=== PATIENT | female | born 2000 | race Caucasian/White ===

== ENCOUNTER 2021-07-22 16:37 | Outpatient (REF) | payer OTHER, SELFPAY | END 2021-07-22 16:38 | disposition home or self-care (01) | LOC: HO.LNP 16:37 | PROVIDERS: Visit Provider Physician Assistant Medical | DX: Z20.822 Contact with and (suspected) exposure to COVID-19 (principal); J06.9 Acute upper respiratory infection, unspecified | CPT/HCPCS: U0003; U0005 ==

== ENCOUNTER 2022-01-16 01:54 | Emergency (ER) | payer OTHER, SELFPAY ==
[2022-01-16 02:31] VITALS: BP 109/61; PULSE 98; RESP 16; TEMP 36.3; O2SAT 95; BMI 23.1
[2022-01-16] MEDS: Lidocaine HCl 2 % 20 ML VIAL INFILTRATI (04:13)
--- NOTE | 2022-01-16 04:38 | ED.WOUNDLAC ---
HPI - Wound/Laceration General Chief Complaint: Extremity Injury, Lower Stated Complaint: lac on left thumb Time Seen by Provider: 01/16/22 03:52 Source: patient and other Mode of arrival: ambulatory History of Present Illness HPI narrative: 21-year-old female without significant past medical history and up-to-date on her tetanus presents with laceration to the left thumb. Related Data Home Medications Medication Instructions Recorded Confirmed No Known Home Meds 07/22/21 07/22/21 Allergies Allergy/AdvReac Type Severity Reaction Status Date / Time No Known Allergies Allergy Verified 07/22/21 10:34 Review of Systems Review of Systems: Pertinent positives and negatives as stated in HPI 10 point review of systems is otherwise negative. [facility] Past Medical History Source: nursing notes reviewed Social History Social History Patient Tobacco Use Status: Never used Tobacco Advance Directives: No Physical Exam Vital Signs: Vital Signs: Last Vital Signs Temp 97.4 F 01/16/22 02:31 Pulse 98 01/16/22 02:31 Resp 16 01/16/22 02:31 BP 109/61 01/16/22 02:31 Pulse Ox 95 01/16/22 02:31 BMI result Body Mass Index 23.1 VITAL SIGNS: Reviewed. GENERAL: Well developed, well nourished, in no acute distress. HEAD: Normocephalic/atraumatic EYES: PERRLA, EOMI EARS: Ext canals without abnormality OROPHARYNX: no oral lesions noted, posterior pharynx clear LUNGS: Normal breath sounds. SpO2<95> CARDIOVASCULAR: Regular rate and rhythm without noted murmurs ABDOMEN: Soft, non-tender, non-distended with bowel sounds. EXTREMITIES: No cyanosis, clubbing or edema; LEFT THUMB: 2.5 cm linear laceration that is hemostatic to the palmar aspect of the left thumb otherwise neurovascularly intact. NEUROLOGIC: Alert and oriented x 4. Course Course Course Narrative: 21-year-old female with a left thumb laceration that was repaired with 5 sutures, patient tolerated procedure well, no Tdap indicated at this time and otherwise discharged home in stable condition with instructions to follow-up in 7 days for suture removal in use Tylenol and ibuprofen for pain. Procedures Laceration Laceration 1: Site: hand Side (If applicable): left Size (cm): 2.5 Description: linear Depth: simple, single layer Local Anesthetic: lidocaine 2% Amount of anesthesia used (mL): 10 Pre-repair: wound explored, irrigated extensively and deep structures intact Skin layer closed with: nylon Size (cm): 4-0 Number of sutures: 5 Technique: simple, interrupted Discharge Plan Discharge Clinical Impression: Laceration of left thumb Patient Disposition: Home, Self-Care Instructions: Laceration (ED), Care For Your Stitches (ED) Additional Instructions: 1. Recommend [id number] Tylenol/ibuprofen as needed for pain control. Remember a keep hand elevated when possible. 2. After 24 hours you may cleanse the area gently with soap and water, blot dry, apply antibiotic ointment and use gauze bandage. 3. Please return to the emergency room or your primary care provider for removal of the sutures (5) in 7 days. Return to the ER for worsening symptoms. Prescriptions: No Action No Known Home Meds 0RF
== END 2022-01-16 05:00 | disposition home or self-care (01) ==
PROVIDERS: Emergency Provider Student in an Organized Health Care Education/Training Program
DX: S61.012A Laceration without foreign body of left thumb without damage to nail, initial encounter (principal); X58.XXXA Exposure to other specified factors, initial encounter; Y93.9 Activity, unspecified; Y92.9 Unspecified place or not applicable; Y99.9 Unspecified external cause status
CPT/HCPCS: 12001; 99284